=== PATIENT | male | born 1970 | race African-American/Black ===

== ENCOUNTER 2016-09-24 15:25 | Emergency (ER) | payer SELFPAY ==
[~2016-09-24] VITALS: Ht 180.3 cm; Wt 106.8 kg
[~2016-09-24 15:25] MED LIST: ASPI81 PO; GABA-529 PO; LISI-662 PO; LOSA25TA21 PO; METF500T4 PO
[2016-09-24] MEDS ORDERED: ATEN25 PO (15:29)
[2016-09-24] MEDS ORDERED: HYDROCODONE/ACETAMINOPHEN 5-325 MG TABLET PO ONE (16:00)
[2016-09-24 16:31] LABS: APPEARANCE,URINE CLEAR (CLEAR); GLUCOSE, URINE (UA) NEGATIVE (NEGATIVE); KETONES,URINE NEGATIVE (NEGATIVE); LEUKOCYTE ESTERASE ,URINE TRACE (NEGATIVE); OCCULT BLOOD,URINE TRACE (NEGATIVE); PH,URINE 5.5 (5.0-8.0); PROTEIN,URINE TRACE (NEGATIVE)
[2016-09-24 16:33] LABS: SQUAMOUS EPITHELIAL CELL,UR Rare /LPF (None Seen)
[2016-09-24] MEDS ORDERED: AZITHROMYCIN 250 MG TABLET PO ONE (17:30)
[2016-09-24] MEDS ORDERED: CefTRIAXone SODIUM 1 GM/VIAL IM ONE (17:30)
[2016-09-24] MEDS ORDERED: LIDOCAINE HCL/PF 1% 2 ML VIAL IM ONE (17:30)
[2016-09-24 19:31] VITALS: BP 135/88
[2016-09-27 02:27] LABS: GC DNA N.A. AMPLIFY Negative (Negative)
== END 2016-09-24 19:36 | disposition home or self-care (01) ==
LOC: EMS 15:27
DX: N45.1 Epididymitis (principal); E11.9 Type 2 diabetes mellitus without complications; I10 Essential (primary) hypertension; Z79.82 Long term (current) use of aspirin; Z88.0 Allergy status to penicillin
CPT/HCPCS: 76870; 81001; 87491; 87591; 96372; 99285; J0696; J3490

== ENCOUNTER 2019-04-25 19:03 | Emergency (ER) | payer SELFPAY ==
[~2019-04-25 19:03] MED LIST changes: +ATEN25TA PO; -LOSA25TA21 PO; +LOSA25TA41 PO; +METF-960 PO; -METF500T4 PO
== END 2019-04-25 21:04 | disposition left against medical advice (07) ==
LOC: EMS 19:19
DX: R20.0 Anesthesia of skin (principal); Z53.21 Procedure and treatment not carried out due to patient leaving prior to being seen by health care provider

== ENCOUNTER 2019-07-04 22:45 | Emergency (ER) | payer SELFPAY ==
[~2019-07-04] VITALS: Ht 180.3 cm; Wt 104.5 kg
[~2019-07-04 22:45] MED LIST changes: +ASPI-728 PO; -ASPI81 PO; -LOSA25TA41 PO; +LOSA25TA71 PO
[2019-07-04 23:39] LABS: BASOPHILS % (AUTO) 1.3 % (0.0-2.0); EOSINOPHILS % (AUTO) 1.7 % (1.0-6.0); HEMATOCRIT 40.6 % (41-53); HEMOGLOBIN 13.5 g/dL (13.5-17.5); LYMPHOCYTES # (AUTO) 2.2 K/uL (1.0-4.8); LYMPHOCYTES % (AUTO) 51.1 % (22.0-44.0); MEAN CORPUSCULAR HEMOGLOBIN 28.6 pg (26.0-34.0); MEAN CORPUSCULAR HGB CONC 33.2 G/dL (31.0-37.0); MEAN CORPUSCULAR VOLUME 86 fL (80-100); MONOCYTES # (AUTO) 0.3 K/uL (0.1-1.0); MONOCYTES % (AUTO) 5.9 % (2.0-9.0); NEUTROPHILS # (AUTO) 1.7 K/uL (1.8-7.7); PLATELET COUNT (AUTO) 209 K/uL (150-450); RED BLOOD CELL COUNT(AUTO) 4.71 MIL/uL (4.50-5.90); RED CELL DISTRIBUTION WIDTH 15.1 % (11.5-14.5)
[2019-07-04 23:49] LABS: ANION GAP 14 mmol/L (8-16); CALCIUM, TOTAL 8.8 mg/dL (8.8-10.5); CARBON DIOXIDE 25 mmol/L (22-29); CHLORIDE 103 mmol/L (98-107); GLOMERULAR FILTR. RATE CALC > 60 mL/min (>60); GLUCOSE,RANDOM 179 mg/dL (70-110); POTASSIUM 3.8 mmol/L (3.5-5.1); SODIUM SERUM 142 mmol/L (136-145); UREA NITROGEN, BLOOD 15 mg/dL (7-18)
[2019-07-05] LABS: GLUCOSE,POINT OF CARE 198 MG/DL (70-110)
[2019-07-05 00:13] LABS: CREATINE KINASE, TOTAL ONLY 364 U/L (39-308)
[2019-07-05 00:16] LABS: APPEARANCE,URINE CLEAR (CLEAR); BILIRUBIN,URINE NEGATIVE (NEGATIVE); GLUCOSE, URINE (UA) NEGATIVE (NEGATIVE); KETONES,URINE NEGATIVE (NEGATIVE); LEUKOCYTE ESTERASE ,URINE SMALL (NEGATIVE); NITRATE,URINE NEGATIVE (NEGATIVE); OCCULT BLOOD,URINE NEGATIVE (NEGATIVE); PH,URINE 5.5 (5.0-8.0); PROTEIN,URINE NEGATIVE (NEGATIVE); UROBILINOGEN,URINE 0.2 mg/dL (<=1.0)
[2019-07-05 00:18] LABS: INFLUENZA TYPE A NEGATIVE FOR TYPE A (NEGATIVE); INFLUENZA TYPE B NEGATIVE FOR TYPE B (NEGATIVE)
[2019-07-05 00:25] LABS: BACTERIA,URINE None Seen /HPF (None Seen); RBC,URINE None Seen /HPF (0-2); SQUAMOUS EPITHELIAL CELL,UR Few /LPF (None Seen)
[2019-07-05 00:28] LABS: AMPHET/METH SCREEN,URINE NEGATIVE (NEGATIVE); BARBITURATE SCREEN, URINE NEGATIVE (NEGATIVE); BENZODIAZEPINES SCREEN,URINE NEGATIVE (NEGATIVE); CANNABINOID SCREEN,URINE POSITIVE (NEGATIVE); COCAINE SCREEN,URINE NEGATIVE (NEGATIVE); METHADONE SCREEN, URINE NEGATIVE (NEGATIVE); OPIATE SCREEN,URINE NEGATIVE (NEGATIVE); PHENCYCLIDINE SCREEN,URINE NEGATIVE (NEGATIVE)
[2019-07-05] MEDS ORDERED: MAGNESIUM OXIDE 400 MG TABLET PO ONE (01:45)
[2019-07-05] MEDS ORDERED: SULFAMETHOX/TRIMETH DS 800-160 MG/TABLET PO ONE (01:45)
[2019-07-05 01:48] VITALS: BP 142/80
== END 2019-07-05 01:54 | disposition home or self-care (01) ==
LOC: EMS 22:47
DX: R82.71 Bacteriuria (principal); D72.820 Lymphocytosis (symptomatic); E83.42 Hypomagnesemia; E11.9 Type 2 diabetes mellitus without complications; I10 Essential (primary) hypertension; F12.90 Cannabis use, unspecified, uncomplicated; Z79.899 Other long term (current) drug therapy; Z79.82 Long term (current) use of aspirin; Z88.0 Allergy status to penicillin
CPT/HCPCS: 83735; 87086; 87804; 93005